=== PATIENT | female | born 1975 | race Caucasian/White ===

== ENCOUNTER → 2016-10-11 | Outpatient (REF) ==
[~2016-10-11] MED LIST: PERC5TAB6 PO; ROBA500T PO
--- NOTE | 2016-10-11 12:41 | REP ---
Clinical: Chest pain . Technique: PA and lateral. Findings: The mediastinum and cardiac silhouette are normal. The lung bird are clear and without acute consolidation, effusion, or pneumothorax. The skeletal structures are intact and normal. Impression: 1. No acute cardiopulmonary process. Signed by Jose Alejandro Cox MD 10/11/2016 12:33 P
--- NOTE | 2016-10-11 12:43 | REP ---
LUMBAR SPINE, FIVE VIEWS: HISTORY: Degenerative disc disease. COMPARISON: 01/02/2016. There is no acute fracture or subluxation. The L3-4 intervertebral disc is decreased in height consistent with disc degeneration. Osteophytes are present on L2-4. The facet joints are normal in appearance. IMPRESSION: Degenerative change as described above. Signed by Chad Montes De Oca MD 10/11/2016 12:46 P
--- NOTE | 2016-10-11 12:46 | REP ---
CERVICAL SPINE, SEVEN VIEWS: HISTORY: Degenerative disc disease. COMPARISON: 04/24/2016. The patient is status post C5-6 anterior spinal fusion. A fixation plate and bone graft material are present. There is no acute fracture or subluxation. The C4-5 intervertebral disc is decreased in height consistent with disc degeneration. Osteophytes are present on C4 and 7. There is narrowing of the right C4 neural foramen secondary to uncinate process hypertrophy. The left neural foramina are not well seen. IMPRESSION: 1. The patient is status post C5-6 anterior spinal fusion. There is anatomic alignment. 2. There is cervical spondylosis at the C4-5 and C6-7 levels. Signed by Chad Montes De Oca MD 10/11/2016 12:46 P
--- NOTE | 2016-10-11 13:00 | REP ---
Clinical: Pain. Technique: Shirley Valenzuela, lateral views. Findings: Sinuses are well aerated and clear. No mucosal thickening or fluid levels are identified. Osseous structures and surrounding soft tissues are normal. Impression: Normal sinus radiograph series. Signed by Jose Alejandro Cox MD 10/11/2016 12:52 P
== END | disposition home or self-care (01) ==
LOC: M SMT 11:10
PROVIDERS: ATTEND Internal Medicine
DX: Z02.71 Encounter for disability determination (principal)

== ENCOUNTER → 2016-11-28 | Outpatient (CLI) | payer OTHER ==
--- NOTE | 2016-11-28 10:08 | REP ---
Thyroid ultrasound: Comparison is 06/15/2016. Right lobe: The right lobe is enlarged measuring 5.7 x 1.5 x 2.1 cm (previously 5.2 x 1.6 x 2.1 cm). There are three right lobe thyroid nodules as previously. The largest maximally measures 1.3 cm (previously 1.2 cm). The next largest maximally measures 1.1 centimeters (previously 1.2 cm). The smallest maximally measures 1.0 cm (previously 0.5 cm). The left lobe is enlarged measuring 5.7 x 2.0 x 1.7 cm (previously four point November 24 0.8 x 1.5 cm). There are four left lobe nodules this is three nodules previously). The largest nodule is posteriorly in the left lobe today maximally measuring 2.4 cm (previously 2.4 cm). The next largest today measures 1.4 cm (previously 1.3 cm. The next largest measures 1.4 cm (previously 1.4 cm). The fourth nodule, not present previously, measures 1.4 cm. The isthmus is not thickened measuring 2 mm since 1.8 mm previously). There are no nodules in the isthmus. Impression: Bilateral thyroid nodules. Enlarged right and left thyroid lobes. Signed by Donald Diaz MD 11/28/2016 10:00 A
== END ==
LOC: M RAD 08:57
PROVIDERS: ATTEND Otolaryngology
DX: E04.2 Nontoxic multinodular goiter (principal)

== ENCOUNTER → 2017-03-04 | Outpatient (CLI) | payer OTHER ==
[~2017-03-04] MED LIST changes: +PERC5TAB12 PO; -PERC5TAB6 PO
--- NOTE | 2017-03-05 00:27 | REP ---
Clinical: Multinodular goiter. Technique: Real time barnett scale and color evaluation using linear high frequency transducer. Comparison: 11/28/2016. Findings: Enlarged heterogeneous multinodular goiter is essentially unchanged compared to prior examination. Right lobe measures approximately 5.0 x 1.3 x 1.7 cm with multiple nodules. Specifically anterior mid pole nodule measuring 13 x 10 x 9 mm is unchanged and posterior lower pole nodule measuring 12 x 11 x 13 mm may be slightly increased (previously measuring 11 x 11 x 9 mm). Left lobe measures approximately 5.5 x 2.0 x 2.1 cm with multiple nodules. Specifically the anterior mid pole nodule measures 14 x 10 x 11 mm (previously measuring 14 x 9 x 12 mm) and lower pole nodule measuring 25 x 17 x 17 mm is essentially stable (previously measuring 24 x 15 x 16 mm). Anterior mid pole cyst with nodular component measures 9 x 5 x 9 mm and is unchanged. Impression: Multinodular goiter essentially unchanged from prior examination. Most prominent nodules as described above. Signed by Jose Alejandro Cox MD 03/05/2017 12:18 A
== END ==
LOC: M RAD 15:36
PROVIDERS: ATTEND Family Medicine
DX: E04.9 Nontoxic goiter, unspecified (principal)

== ENCOUNTER → 2017-04-04 | Outpatient (CLI) | payer OTHER ==
--- NOTE | 2017-04-04 12:19 | REP ---
MRI LUMBAR SPINE WITHOUT CONTRAST: HISTORY: Back pain. There is no disc bulge or herniation at the L1-2 and L5-S1 levels. The nerves exit the neural foramina without compression. A diffuse disc bulge is present at the L2-3 level. There is minimal compression of the thecal sac. The L2 nerves exit the neural foramina without compression. A diffuse disc bulge is present at the L3-4 level. There is minimal compression of the thecal sac. The L3 nerves exit the neural foramina without compression. A diffuse disc bulge is present at the L4-5 level. There is minimal compression of the thecal sac. There is hypertrophy of the posterior articulating facets. The L4 nerves exit the neural foramina without compression. The conus medullaris is normal in appearance terminating at the level of the L1-2 intervertebral disc. Normal signal intensity is present in the lumbar intervertebral discs and vertebral bodies. IMPRESSION: Diffuse disc bulges at the L2-3 through L4-5 levels with minimal thecal sac compression. Signed by Chad Montes De Oca MD 04/04/2017 12:58 P
== END ==
LOC: M RAD 10:58
PROVIDERS: ATTEND Pain Medicine Interventional Pain Medicine
DX: M25.512 Pain in left shoulder (principal); M47.817 Spondylosis without myelopathy or radiculopathy, lumbosacral region; M51.36 Other intervertebral disc degeneration, lumbar region; M54.81 Occipital neuralgia; M54.12 Radiculopathy, cervical region; M50.220 Other cervical disc displacement, mid-cervical region, unspecified level; M50.320 Other cervical disc degeneration, mid-cervical region, unspecified level; M96.1 Postlaminectomy syndrome, not elsewhere classified; M51.06 Intervertebral disc disorders with myelopathy, lumbar region

== ENCOUNTER → 2017-09-10 | Outpatient (CLI) | payer OTHER | LOC: M RAD 09:30 | DX: Z12.31 Encounter for screening mammogram for malignant neoplasm of breast (principal) ==

== ENCOUNTER → 2017-10-02 | Outpatient (CLI) | payer OTHER | LOC: M LAB 10:27 | DX: E04.2 Nontoxic multinodular goiter (principal) ==

== ENCOUNTER → 2018-06-11 | Outpatient (CLI) | payer OTHER | LOC: M RAD 15:52 | DX: J98.4 Other disorders of lung (principal) | CPT/HCPCS: 71250 ==

== ENCOUNTER → 2018-09-16 | Outpatient (CLI) | payer OTHER ==
--- NOTE | 2018-09-17 08:03 | REP ---
Clinical: Nontoxic multinodular goiter. Technique: Real time barnett scale and color evaluation using linear high frequency transducer. Comparison: 03/04/2017. Findings: The thyroid gland is enlarged and demonstrates multiple scattered nodules and cystic lesions. The isthmus measures 4 mm in width. Right lobe measures 5.0 x 1.6 x 2.5 cm including complex upper pole nodule measuring 14 x 9 x 10 mm and mid to lower pole nodules measuring 9 x 7 x 7 mm and 9 x 9 x 10 mm as well as small nonspecific subcentimeter cysts. Left lobe measures 5.6 x 2.0 x 1.7 cm and includes complex upper pole nodule measuring 13 x 8 x 10 mm along with mid pole nodules measuring 11 x 10 x 10 mm, 15 x 5 x 8 mm, and lower pole nodule measuring 24 x 13 x 17 mm along with small nonspecific subcentimeter cysts. Impression: Nontoxic multinodular goiter as described above. The 9 x 7 x 7 mm mid pole nodule in the right lobe represents a new finding while the remainder of the bilateral nodules are essentially stable when allowing for subtle variations in technique. Electronically Signed by Jose Alejandro Cox MD 09/17/2018 07:54 A
== END ==
LOC: M RAD 12:39
PROVIDERS: ATTEND Physician Assistant Medical
DX: E04.2 Nontoxic multinodular goiter (principal)

== ENCOUNTER → 2018-10-02 | Outpatient (CLI) | payer OTHER | LOC: M LAB 10:21 | PROVIDERS: ATTEND Physician Assistant Medical | DX: E04.2 Nontoxic multinodular goiter (principal) ==

== ENCOUNTER → 2019-09-17 | Outpatient (CLI) | payer OTHER ==
--- NOTE | 2019-09-18 03:36 | REP ---
Clinical: Multinodular goiter. Comparison: 09/16/2018. Technique: Real time barnett scale ultrasound examination using high frequency transducer. Findings: Right lobe measures 5.5 x 1.5 x 1.9 cm and includes solid upper pole nodule measuring 1.5 x 1.0 x 1.3 cm, primarily solid mid pole nodule measuring 1.1 x 1.0 x 1.2 cm, solid mid pole nodule measuring 0.8 x 0.5 x 0.7 cm, and smaller scattered nodules. Left lobe measures 6.8 x 1.7 x 1.3 cm and includes solid upper pole nodule measuring 1.3 x 1.0 x 1.2 cm, solid lower pole nodule measuring 2.1 x 1.6 x 1.8 cm, solid mid pole nodule measuring 1.4 x 1.1 x 1.2 cm, and smaller scattered nodules. Isthmus measures 3.2 mm in width. Impression: Multinodular goiter. Allowing for differences in technique, scattered nodules are similar to prior examination and essentially unchanged. Electronically Signed by Jose Alejandro Cox MD 09/18/2019 03:27 A
== END ==
LOC: M RAD 10:58
PROVIDERS: ATTEND Physician Assistant Medical
DX: E04.2 Nontoxic multinodular goiter (principal)

== ENCOUNTER → 2019-09-24 | Outpatient (CLI) | payer OTHER | LOC: M LAB 08:22 | PROVIDERS: ATTEND Physician Assistant Medical | DX: E04.1 Nontoxic single thyroid nodule (principal) ==

== ENCOUNTER 2019-11-19 08:01 | Emergency (ER) | payer OTHER ==
[~2019-11-19] VITALS: Ht 165.1 cm; Wt 66.5 kg
[2019-11-19] MEDS ORDERED: VENL100T PO (08:18)
[2019-11-19] MEDS ORDERED: TOPA50TA8 PO (08:18)
[2019-11-19] MEDS ORDERED: TIZA2CAP6 PO (08:18)
[2019-11-19] MEDS ORDERED: SAPH1SUB9 SL (08:18)
[2019-11-19] MEDS ORDERED: ONDANSETRON 4MG/2ML VIAL (J2405) IV ONE (08:30)
[2019-11-19] MEDS ORDERED: MORPHINE 4 MG/ML 1ML VIAL/SYRINGE (J2270) IV PRN (08:30)
--- NOTE | 2019-11-19 08:52 | REP ---
Head CT without contrast: History: Trauma. Comparison study: No comparison study. CT findings: Bone window settings demonstrate an intact bony calvarium. There is no evidence of skull fracture or incidental bony calvarial lesion. The visualized paranasal sinuses appear clear. No intraorbital abnormality is seen. On soft tissue window setting images; the lateral, third, and fourth ventricles are normal in size and position. Westbrook-white differentiation pattern is normal above and below the tentorium. There are is no evidence of intracranial hemorrhage. No mass, edema, infarction, or midline shift is seen. No extra-axial fluid collection is appreciated. Impression: Negative noncontrast head CT. Electronically Signed by Jv Rivas MD 11/19/2019 08:51 A
--- NOTE | 2019-11-19 09:03 | REP ---
CT study of the cervical spine without contrast: History: Trauma Technique: Helical scanning is acquired and overlapping 2 mm high resolution axial images were generated and reviewed at bone and soft tissue window settings. Coronal and sagittal multiplanar re-formations images are generated. CT findings: There is no evidence of cervical spine element fracture. No skull base fracture is seen. Cervical vertebral body heights are preserved. Alignment is normal. Facet joints are normally aligned bilaterally at each cervical level on multiplanar re-formations images. There is no evidence of intraspinal or paraspinal hematoma. No extra vertebral abnormality is seen. The patient is status post anterior discectomy and fusion plating across the C 05/06 disc level. Degenerative disc spurring is noted at C6-7 and C4-5. C4-5 there is some posterior osteophytic ridging. Multinodular thyroid changes are noted incidentally on the right. Impression: Multinodular thyroid, left larger than right. Otherwise negative CT study of the cervical spine without contrast. No fracture seen. Electronically Signed by Jv Rivas MD 11/19/2019 08:54 A
--- NOTE | 2019-11-19 09:35 | REP ---
RIGHT KNEE, FIVE VIEWS: There is no evidence of an acute fracture, dislocation or intrinsic bone disease. IMPRESSION: No fracture or dislocation. Electronically Signed by Donald Westbrook MD 11/19/2019 04:49 P
--- NOTE | 2019-11-19 09:36 | REP ---
RIGHT ANKLE, FOUR VIEWS: Four views of the right ankle performed. There is mild lateral soft tissue swelling. There is no acute fracture or dislocation. The ankle mortise is anatomic. Oval calcification distal to the lateral malleolus probably representing an old avulsion fracture. IMPRESSION: No acute fracture or dislocation. Electronically Signed by Donald Westbrook MD 11/19/2019 04:49 P
[2019-11-19] MEDS ORDERED: ADACEL/BOOSTRIX VACCINE (DIPHTH/PERTUSS/ACELL/TETANUS)0.5ML SYR (90715) IM ONE (09:45)
[2019-11-19 10:00] VITALS: BP 113/59
--- NOTE | 2019-11-19 10:12 | REP ---
Right foot: Four views. History: Trauma. Findings: Four views right foot show Achilles calcaneal spurring. Bones, joints and soft tissues are otherwise unremarkable. No fracture or subluxation is seen. Impression: No fracture noted. Electronically Signed by Jv Rivas MD 11/19/2019 10:03 A
--- NOTE | 2019-11-19 15:49 | ED PDOC ---
Post-Departure Follow-Up ft ayala samuels faxed formal report of ct c spine for fu Fadia Wilkinson MD Nov 19, 2019 15:48
== END 2019-11-19 10:25 | disposition home or self-care (01) ==
LOC: M ED 08:01 → EDBD 08:01 → M ED 10:25
DX: S90.31XA Contusion of right foot, initial encounter (principal); S90.01XA Contusion of right ankle, initial encounter; V47.5XXA Car driver injured in collision with fixed or stationary object in traffic accident, initial encounter; Y92.410 Unspecified street and highway as the place of occurrence of the external cause; Z79.899 Other long term (current) drug therapy; Z88.1 Allergy status to other antibiotic agents; Z88.0 Allergy status to penicillin; Z88.8 Allergy status to other drugs, medicaments and biological substances; Z23 Encounter for immunization
CPT/HCPCS: 70450; 72125; 73564; 73610; 73630; 90471; 90715; 96374; 96375; 99284; J2270; J2405

== ENCOUNTER → 2020-09-26 | Outpatient (CLI) | payer OTHER ==
[~2020-09-26] MED LIST changes: +SAPH1SUB9 SL; +TIZA2CAP6 PO; +TOPA50TA8 PO; +VENL100T PO
--- NOTE | 2020-09-27 08:24 | REP ---
INDICATION: NON TOXIC GOITER COMPARISON: 09/17/2019 TECHNIQUE: Westbrook scale and color evaluation of the thyroid gland using the linear high frequency transducer. FINDINGS: Thyroid gland is mildly enlarged and heterogeneous with multiple nodules identified. Right thyroid lobe measures 4.9 x 1.5 x 1.6 cm and includes 1.5 x 0.9 x 1.0 cm solid upper pole nodule, 1.5 x 0.6 x 0.8 cm solid midpole nodule, and 1.2 x 0.9 x 1.1 cm solid mid/lower pole nodule. Isthmus measures 3.3 mm in width. Left thyroid lobe measures 5.5 x 1.8 x 1.5 cm and includes 1.9 x 0.7 x 1.6 cm solid upper pole nodule, 1.2 x 0.9 x 1.1 cm solid upper pole nodule, and 2.0 x 1.5 x 1.6 cm solid lower pole nodule. IMPRESSION: Allowing for differences in technique, the above-mentioned nodules are similar to prior examination and without significant change. <Electronically signed by Jose Alejandro Cox > 09/27/20 [id number]
== END ==
LOC: M RAD 16:10
PROVIDERS: ATTEND Physician Assistant Medical
DX: E04.2 Nontoxic multinodular goiter (principal)

== ENCOUNTER → 2020-09-30 | Outpatient (CLI) | payer OTHER | LOC: M LAB 13:27 | PROVIDERS: ATTEND Physician Assistant Medical | DX: E04.2 Nontoxic multinodular goiter (principal) ==

== ENCOUNTER → 2020-10-27 | Outpatient (CLI) | payer OTHER ==
--- NOTE | 2020-10-27 11:12 | REPMRS ---
Patient History The patient states she has not had a clinical breast exam in over a year. Family history of breast cancer at age 34 in maternal cousin. Benign stereotactic TERESE of the right breast, 2012. No Hormone Replacement Therapy 3D TOMOSYNTHESIS WAS PERFORMED. [facility]%. Volpara breast density c. Digital Woman Screen Mammo: October 27, 2020 - Exam #: [id number] Bilateral CC and MLO view(s) were taken. Technologist: Dee Garcia, Technologist Prior study comparison: September 10, 2017, bilateral digital mammo screening bilat, performed at [facility]. November 13, 2012, digital bilateral screening mammo. FINDINGS: The breast tissue is heterogeneously dense. This may lower the sensitivity of mammography. There has been no change in the appearance of the mammogram from the prior studies. There is a moderate amount of residual fibroglandular tissue which is fairly symmetric. There is no interval development of dominant mass, areas of architectural distortion, or clustered microcalcification typical of malignancy. Assessment: BI-RADS/ACR category 1 mammogram. Negative Mammogram. Recommendation Routine screening mammogram in 1 year (for women over age 40). This mammogram was interpreted with the aid of an FDA-approved computer-aided dectection system. Electronically Signed By: Donald Westbrook MD 10/27/20 1111
== END ==
LOC: M WHC 09:23
PROVIDERS: ATTEND Nurse Practitioner Family
DX: Z12.31 Encounter for screening mammogram for malignant neoplasm of breast (principal)

== ENCOUNTER → 2021-10-09 | Outpatient (CLI) | payer OTHER | LOC: M RAD 10:11 | PROVIDERS: ATTEND Physician Assistant Medical | DX: E04.2 Nontoxic multinodular goiter (principal) ==

== ENCOUNTER 2021-10-11 09:41 | Emergency (ER) | payer OTHER ==
[~2021-10-11] VITALS: Ht 165.1 cm; Wt 67.9 kg
[2021-10-11] MEDS ORDERED: NS 1,000 ML IV SCH (10:25)
[2021-10-11 11:02] LABS: BASO % 0.2 % (0.0-1.0); HEMATOCRIT 43.7 % (36.0-47.0); HEMOGLOBIN 14.5 g/dl (12.0-15.5); LYMPH # 1.5 10^3/uL (1.5-5.0); MEAN CORPUSCULAR HEMOGLOBIN 29.1 pg (27.0-33.0); MEAN CORPUSCULAR HGB CONC 33.2 g/dl (32.0-36.5); MEAN CORPUSCULAR VOLUME 87.6 fl (80.0-96.0); MONO # 0.3 10^3/uL (0.0-0.8); MONO % 7.4 % (2.0-8.0); NEUTROPHILS # 2.2 10^3/uL (1.5-8.5); NEUTROPHILS % 54.7 % (36.0-66.0); PLATELET COUNT, AUTOMATED 222 10^3/uL (150-450); RED BLOOD COUNT 4.99 10^6/uL (4.00-5.40)
[2021-10-11] MEDS ORDERED: KETOROLAC 30 MG/ML 1ML VIAL IV ONE (11:25)
[2021-10-11] MEDS ORDERED: ONDANSETRON 4MG/2ML VIAL IV ONE (11:25)
[2021-10-11] MEDS ORDERED: dexameTHASONE 20MG/5ML VIAL (J1100 PER 1MG) IV ONE (11:25)
[2021-10-11 11:30] LABS: BLOOD UREA NITROGEN 7 MG/DL (7-18); CALCIUM LEVEL 8.9 MG/DL (8.5-10.1); CARBON DIOXIDE LEVEL 24 MEQ/L (21-32); CHLORIDE LEVEL 110 MEQ/L (98-107); CREATININE FOR GFR 0.86 MG/DL (0.55-1.30); GLOMERULAR FILTRATION RATE > 60.0 (>58); GLUCOSE, FASTING 90 MG/DL (70-100); POTASSIUM SERUM 4.4 MEQ/L (3.5-5.1); SODIUM LEVEL 140 MEQ/L (136-145)
[2021-10-11 13:12] VITALS: BP 109/58
== END 2021-10-11 13:14 | disposition home or self-care (01) ==
LOC: M ED 09:41
DX: U07.1 COVID-19 (principal); J45.909 Unspecified asthma, uncomplicated; G95.9 Disease of spinal cord, unspecified; M54.10 Radiculopathy, site unspecified; Z88.1 Allergy status to other antibiotic agents; Z88.0 Allergy status to penicillin; Z88.8 Allergy status to other drugs, medicaments and biological substances; Z79.899 Other long term (current) drug therapy
CPT/HCPCS: 80048; 85025; 87804; 93005; 96361; 96374; 96375; 99284; J1100; J1885; J2405

== ENCOUNTER → 2021-10-16 | Outpatient (CLI) | payer OTHER ==
[2021-10-16 12:19] LABS: FREE T4 0.87 NG/DL (0.76-1.46); THYROID STIMULATING HORMONE 1.68 uIU/ML (0.358-3.740)
== END ==
LOC: M LAB 10:29
PROVIDERS: ATTEND Physician Assistant Medical
DX: E04.2 Nontoxic multinodular goiter (principal)

== ENCOUNTER → 2021-10-27 | Outpatient (CLI) | payer OTHER ==
[~2021-10-27] MED LIST changes: +CYAN500T14 PO; +LIDOCAINE 1% MDV 20ML VIAL As Ordered ONE; +MAGN1CAP PO; +SING10TA32 PO; +ZYRTTAB8 PO
[2021-10-27 13:45] VITALS: BP 112/76
== END ==
LOC: M IRPRO 12:16
PROVIDERS: ATTEND Physician Assistant Medical
DX: E04.2 Nontoxic multinodular goiter (principal)

== ENCOUNTER → 2021-11-15 | Outpatient (CLI) | payer OTHER ==
[~2021-11-15] MED LIST changes: +E-Z-GAS II EFFERVESCENT PACKET (SODIUM BICARB./CITRIC ACID/SIMETHICONE) As Ordered ONE; +E-Z-HD 98% w/w 340GM SUSP BTL As Ordered ONE; +E-Z-PAQUE 96% w/w SUSP 176GM BTL As Ordered ONE; +ISOVUE-370 76% 100ML VIAL As Ordered ONE; -LIDOCAINE 1% MDV 20ML VIAL As Ordered ONE
== END ==
LOC: M RAD 08:29
PROVIDERS: ATTEND Otolaryngology
DX: R13.10 Dysphagia, unspecified (principal)

== ENCOUNTER → 2021-11-20 | Outpatient (CLI) | payer OTHER ==
[~2021-11-20] MED LIST changes: -E-Z-GAS II EFFERVESCENT PACKET (SODIUM BICARB./CITRIC ACID/SIMETHICONE) As Ordered ONE; -E-Z-HD 98% w/w 340GM SUSP BTL As Ordered ONE; -E-Z-PAQUE 96% w/w SUSP 176GM BTL As Ordered ONE; -ISOVUE-370 76% 100ML VIAL As Ordered ONE; +LIDOCAINE 1% MDV 20ML VIAL As Ordered ONE; +WELL100T2 PO
[2021-11-20 09:27] VITALS: BP 100/67
== END ==
LOC: M IRPRO 09:11
PROVIDERS: ATTEND Otolaryngology
DX: E04.2 Nontoxic multinodular goiter (principal)

== ENCOUNTER 2021-12-01 09:40 | Emergency (ER) | payer OTHER ==
[~2021-12-01] VITALS: Ht 165.1 cm; Wt 65.9 kg
[~2021-12-01 09:40] MED LIST changes: -LIDOCAINE 1% MDV 20ML VIAL As Ordered ONE
[2021-12-01] MEDS ORDERED: NS 1,000 ML IV ONE (10:20)
[2021-12-01 10:50] LABS: BASO % 0.1 % (0.0-1.0); HEMATOCRIT 38.9 % (36.0-47.0); HEMOGLOBIN 13.1 g/dl (12.0-15.5); LYMPH # 1.3 10^3/uL (1.5-5.0); LYMPH % 13.5 % (24.0-44.0); MEAN CORPUSCULAR HEMOGLOBIN 30.7 pg (27.0-33.0); MEAN CORPUSCULAR HGB CONC 33.7 g/dl (32.0-36.5); MEAN CORPUSCULAR VOLUME 91.1 fl (80.0-96.0); MONO # 0.6 10^3/uL (0.0-0.8); MONO % 5.9 % (2.0-8.0); NEUTROPHILS # 7.4 10^3/uL (1.5-8.5); NEUTROPHILS % 79.9 % (36.0-66.0); PLATELET COUNT, AUTOMATED 223 10^3/uL (150-450); RED BLOOD COUNT 4.27 10^6/uL (4.00-5.40); WHITE BLOOD COUNT 9.3 10^3/uL (4.0-10.0)
[2021-12-01 12:18] LABS: BLOOD UREA NITROGEN 10 MG/DL (7-18); CALCIUM LEVEL 8.4 MG/DL (8.5-10.1); CARBON DIOXIDE LEVEL 25 MEQ/L (21-32); CHLORIDE LEVEL 111 MEQ/L (98-107); CREATININE FOR GFR 0.84 MG/DL (0.55-1.30); FREE T4 0.95 NG/DL (0.76-1.46); GLOMERULAR FILTRATION RATE > 60.0 (>58); GLUCOSE, FASTING 80 MG/DL (70-100); MAGNESIUM LEVEL 2.2 MG/DL (1.8-2.4); POTASSIUM SERUM 4.5 MEQ/L (3.5-5.1); SODIUM LEVEL 140 MEQ/L (136-145)
[2021-12-01 14:30] VITALS: BP 102/64
== END 2021-12-01 15:07 | disposition home or self-care (01) ==
LOC: M ED 09:40
DX: R55 Syncope and collapse (principal); J45.909 Unspecified asthma, uncomplicated; Z12.31 Encounter for screening mammogram for malignant neoplasm of breast; Z85.850 Personal history of malignant neoplasm of thyroid; Z79.899 Other long term (current) drug therapy; Z88.0 Allergy status to penicillin; Z88.1 Allergy status to other antibiotic agents; Z88.8 Allergy status to other drugs, medicaments and biological substances

== ENCOUNTER → 2021-12-13 | Outpatient (CLI) | payer OTHER | LOC: M WHC 12:38 | PROVIDERS: ATTEND Nurse Practitioner Family | DX: Z12.31 Encounter for screening mammogram for malignant neoplasm of breast (principal) | CPT/HCPCS: 77065; G0279 ==

== ENCOUNTER → 2022-04-17 | Outpatient (CLI) | payer BC, OTHER | LOC: M RAD 15:50 | PROVIDERS: ATTEND Nurse Practitioner Family | DX: R22.1 Localized swelling, mass and lump, neck (principal); Z90.89 Acquired absence of other organs ==

== ENCOUNTER → 2022-05-17 | Outpatient (CLI) | payer BC | LOC: M WHC 14:56 | PROVIDERS: ATTEND Nurse Practitioner Family | DX: N92.0 Excessive and frequent menstruation with regular cycle (principal) ==

== ENCOUNTER → 2022-08-07 | Outpatient (CLI) | payer BC | LOC: M PLAIMG 11:06 | PROVIDERS: ATTEND Nurse Practitioner Family | DX: M54.2 Cervicalgia (principal) ==

== ENCOUNTER 2022-11-02 22:40 | Emergency (ER) | payer BC, OTHER ==
[~2022-11-02] VITALS: Ht 165.1 cm; Wt 83.6 kg
[~2022-11-02 22:40] MED LIST changes: +MONT-5 PO; -SING10TA32 PO
[2022-11-02] MEDS ORDERED: RIZA5TAB2 PO (23:00)
[2022-11-02] MEDS ORDERED: SYNT125T PO (23:00)
[2022-11-03] MEDS ORDERED: BACT800T5 PO (00:53)
[2022-11-03] MEDS ORDERED: BACTRIM 160MG/800MG DS TAB PO ONE (00:55)
[2022-11-03 01:03] VITALS: BP 111/77
== END 2022-11-03 01:08 | disposition home or self-care (01) ==
LOC: M ED 22:40
DX: L03.031 Cellulitis of right toe (principal)

== ENCOUNTER → 2022-12-25 | Outpatient (CLI) | payer OTHER ==
[~2022-12-25] MED LIST changes: +BACT800T5 PO; +RIZA5TAB2 PO; +SYNT125T PO
== END ==
LOC: M WHC 07:32
PROVIDERS: ATTEND Nurse Practitioner Family
DX: Z12.31 Encounter for screening mammogram for malignant neoplasm of breast (principal)

== ENCOUNTER → 2023-01-29 | Outpatient (CLI) | payer OTHER | LOC: M WHC 09:14 | PROVIDERS: ATTEND Nurse Practitioner Family | DX: N64.4 Mastodynia (principal) | CPT/HCPCS: 77066; G0279 ==

== ENCOUNTER → 2023-03-20 | Outpatient (CLI) | payer BC | LOC: M PAIN 09:00 | PROVIDERS: ATTEND Anesthesiology | DX: M96.1 Postlaminectomy syndrome, not elsewhere classified (principal); M79.18 Myalgia, other site; M50.10 Cervical disc disorder with radiculopathy, unspecified cervical region; M47.812 Spondylosis without myelopathy or radiculopathy, cervical region; Z98.1 Arthrodesis status; E89.0 Postprocedural hypothyroidism; Z79.890 Hormone replacement therapy; Z88.0 Allergy status to penicillin; Z88.1 Allergy status to other antibiotic agents; Z88.8 Allergy status to other drugs, medicaments and biological substances ==

== ENCOUNTER → 2023-04-17 | Outpatient (CLI) | payer BC, OTHER ==
[2023-04-17 13:59] LABS: BASO % 0.2 % (0.0-1.0); HEMATOCRIT 41.6 % (36.0-47.0); HEMOGLOBIN 13.4 g/dl (12.0-15.5); LYMPH # 1.7 10^3/uL (1.5-5.0); LYMPH % 30.7 % (24.0-44.0); MEAN CORPUSCULAR HEMOGLOBIN 28.3 pg (27.0-33.0); MEAN CORPUSCULAR HGB CONC 32.2 g/dl (32.0-36.5); MEAN CORPUSCULAR VOLUME 87.8 fl (80.0-96.0); MONO # 0.4 10^3/uL (0.0-0.8); MONO % 7.8 % (2.0-8.0); NEUTROPHILS # 3.3 10^3/uL (1.5-8.5); NEUTROPHILS % 60.7 % (36.0-66.0); PLATELET COUNT, AUTOMATED 214 10^3/uL (150-450); RED BLOOD COUNT 4.74 10^6/uL (4.00-5.40); WHITE BLOOD COUNT 5.4 10^3/uL (4.0-10.0)
[2023-04-17 14:24] LABS: FREE T4 1.62 NG/DL (0.89-1.76)
[2023-04-17 14:25] LABS: ALBUMIN 3.5 G/DL (3.2-5.2); ALKALINE PHOSPHATASE 53 U/L (46-116); ALT/SGPT 11 U/L (7.0-40); AST/SGOT 17 U/L (<34); BILIRUBIN,TOTAL 0.4 MG/DL (0.3-1.2); BLOOD UREA NITROGEN < 5 MG/DL (9-23); CALCIUM LEVEL 9.1 MG/DL (8.5-10.1); CARBON DIOXIDE LEVEL 27 MMOL/L (20-31); CHLORIDE LEVEL 106 MMOL/L (98-107); CHOLESTEROL LEVEL 170 MG/DL (<200); CHOLESTEROL RISK RATIO 2.12 (<5); GLOMERULAR FILTRATION RATE > 60.0 (>58); GLUCOSE, FASTING 81 MG/DL (60-100); HDL CHOLESTEROL 80.1 MG/DL (>40); LDL CHOLESTEROL 77.1 MG/DL (<100); NON-HDL-C 89.9 MG/DL; POTASSIUM SERUM 4.9 MMOL/L (3.5-5.1); SODIUM LEVEL 140 MMOL/L (136-145); THYROID STIMULATING HORMONE 0.015 uIU/ML (0.55-4.78); TOTAL PROTEIN 6.6 G/DL (5.7-8.2); TRIGLYCERIDES LEVEL 64 MG/DL (<150)
== END ==
LOC: M PLALAB 10:37
PROVIDERS: ATTEND Registered Nurse
DX: Z00.00 Encounter for general adult medical examination without abnormal findings (principal)

== ENCOUNTER → 2023-05-06 | Outpatient (CLI) | payer BC ==
[~2023-05-06] MED LIST changes: +NORCO, ANEXSIA 5/325MG TABLET (HYDROcodone/ACETAMINOPHEN) As Ordered ONE; +TRIAMCINOLONE ACETONIDE SUSP 40MG/ML 1ML VIAL As Ordered ONE; +diazePAM 5MG TABLET As Ordered ONE
== END ==
LOC: M PAIN 10:30
PROVIDERS: ATTEND Anesthesiology
DX: M79.18 Myalgia, other site (principal); M47.812 Spondylosis without myelopathy or radiculopathy, cervical region; Z98.1 Arthrodesis status; Z88.0 Allergy status to penicillin; Z88.1 Allergy status to other antibiotic agents; Z88.8 Allergy status to other drugs, medicaments and biological substances
CPT/HCPCS: 20553; J0665; J3301

== ENCOUNTER 2023-05-12 12:20 | Inpatient (IN) | payer BC ==
[~2023-05-12] VITALS: Ht 165.1 cm; Wt 66.0 kg
[~2023-05-12 12:20] MED LIST changes: -NORCO, ANEXSIA 5/325MG TABLET (HYDROcodone/ACETAMINOPHEN) As Ordered ONE; -TRIAMCINOLONE ACETONIDE SUSP 40MG/ML 1ML VIAL As Ordered ONE; -diazePAM 5MG TABLET As Ordered ONE
[2023-05-12] MEDS ORDERED: SEMA2.4P SC (12:27)
[2023-05-12 13:15] LABS: HEMATOCRIT 45.6 % (36.0-47.0); MEAN CORPUSCULAR HEMOGLOBIN 28.8 pg (27.0-33.0); MEAN CORPUSCULAR HGB CONC 32.9 g/dl (32.0-36.5); MEAN CORPUSCULAR VOLUME 87.5 fl (80.0-96.0); PLATELET COUNT, AUTOMATED 283 10^3/uL (150-450); RED BLOOD COUNT 5.21 10^6/uL (4.00-5.40); WHITE BLOOD COUNT 9.3 10^3/uL (4.0-10.0)
[2023-05-12 13:46] LABS: ETHYL ALCOHOL (ETHANOL) 0.005 % (0.000-0.010)
[2023-05-12 13:47] LABS: SALICYLATE LEVEL < 3.0 MG/DL (<30)
[2023-05-12 13:48] LABS: ACETAMINOPHEN LEVEL < 2.0 UG/ML (10.0-20.0); ALBUMIN 4.1 G/DL (3.2-5.2); ALKALINE PHOSPHATASE 62 U/L (46-116); ALT/SGPT 14 U/L (7.0-40); AST/SGOT 15 U/L (<34); BILIRUBIN,DIRECT 0.2 MG/DL (<0.4); BILIRUBIN,TOTAL 0.6 MG/DL (0.3-1.2); BLOOD UREA NITROGEN 9 MG/DL (9-23); CALCIUM LEVEL 9.3 MG/DL (8.5-10.1); CARBON DIOXIDE LEVEL 29 MMOL/L (20-31); CHLORIDE LEVEL 102 MMOL/L (98-107); CREATININE FOR GFR 0.76 MG/DL (0.55-1.30); GLOMERULAR FILTRATION RATE > 60.0 (>58); GLUCOSE, FASTING 83 MG/DL (60-100); POTASSIUM SERUM 4.5 MMOL/L (3.5-5.1); SODIUM LEVEL 138 MMOL/L (136-145); TOTAL PROTEIN 7.6 G/DL (5.7-8.2)
[2023-05-12 14:08] LABS: AMPHETAMINES LEVEL URINE NEGATIVE (NEGATIVE)
[2023-05-12 14:09] LABS: BARBITURATES URINE NEGATIVE (NEGATIVE); BENZODIAZEPINES URINE NEGATIVE (NEGATIVE); CANNABINOIDS URINE NEGATIVE (NEGATIVE); COCAINE METABOLITE URINE NEGATIVE (NEGATIVE); METHADONE URINE NEGATIVE (NEGATIVE); OPIATES URINE NEGATIVE (NEGATIVE); PHENCYCLIDINE URINE NEGATIVE (NEGATIVE)
[2023-05-12] MEDS ORDERED: ONDANSETRON 4MG ORAL DISINTEGRATING TAB PO ONE (22:00)
[2023-05-13] MEDS ORDERED: LEVOTHYROXINE 125MCG TABLET (0.125MG) PO SCH (06:00)
[2023-05-13] MEDS ORDERED: B-2100TA PO ×2 (07:48→10:11)
[2023-05-13] MEDS ORDERED: VITA100093 PO (07:48)
[2023-05-13] MEDS ORDERED: CLIN1PAD2 TOP (07:48)
[2023-05-13] MEDS ORDERED: VENL150C43 PO ×2 (08:16→10:39)
[2023-05-13] MEDS ORDERED: MED REC IN PROGRESS XX SCH (08:45)
[2023-05-13] MEDS ORDERED: TOPIRAMATE (TopAMAX) 25 MG TAB PO SCH ×2 (09:00→13:42)
[2023-05-13] MEDS ORDERED: buPROPion 100 MG TAB PO SCH (09:00)
[2023-05-13] MEDS ORDERED: MONT-5 PO (10:02)
[2023-05-13] MEDS ORDERED: LEVO125C PO (10:03)
[2023-05-13] MEDS ORDERED: LEVO125T4 PO (10:04)
[2023-05-13] MEDS ORDERED: CETI5TAB2 PO (10:07)
[2023-05-13] MEDS ORDERED: VITA100T98 PO (10:11)
[2023-05-13] MEDS ORDERED: RIZA10TA2 PO (10:15)
[2023-05-13] MEDS ORDERED: TIZA2CAP6 PO (10:17)
[2023-05-13] MEDS ORDERED: TIZA2CAP PO (10:19)
[2023-05-13] MEDS ORDERED: ASEN5TA SL (10:21)
[2023-05-13] MEDS ORDERED: FLUT1BLS2 IH (10:27)
[2023-05-13] MEDS ORDERED: TOPI-254 PO ×2 (10:32→10:33)
[2023-05-13] MEDS ORDERED: ALBU8.5H INH (10:35)
[2023-05-13] MEDS ORDERED: LIDO5TD TOP (10:38)
[2023-05-13] MEDS ORDERED: LIDO5OIN19 EX (10:38)
[2023-05-13] MEDS ORDERED: METH-1164 PO (10:41)
[2023-05-13] MEDS ORDERED: MAGN400T2 PO (10:42)
[2023-05-13] MEDS ORDERED: HOME MED LIST COMPLETE! XX SCH (11:00)
[2023-05-13] MEDS ORDERED: IBUPROFEN 400MG TAB PO ONE (17:40)
[2023-05-13] MEDS ORDERED: traZODone 50 MG TAB PO PRN (20:50)
[2023-05-13] MEDS ORDERED: diphenhydrAMINE 25MG CAP PO PRN (20:50)
[2023-05-13] MEDS ORDERED: IBUPROFEN 400MG TAB PO PRN (20:50)
[2023-05-13] MEDS ORDERED: MAALOX 30 ML SUSP *UDC PO PRN (20:50)
[2023-05-13] MEDS ORDERED: ACETAMINOPHEN TAB 650MG DOSE (2X325MG) PO PRN (20:50)
[2023-05-13] MEDS ORDERED: MOM 30ML SUSPENSION UDC PO PRN (20:50)
[2023-05-13] MEDS ORDERED: TOPIRAMATE (TopAMAX) 100 MG TAB PO SCH (21:00)
[2023-05-13] MEDS ORDERED: VENLAFAXINE **XR** 75MG CAPSULE PO SCH (21:00)
[2023-05-13 22:36] VITALS: BP 97/63; TEMP 97.2; O2SAT 99
[2023-05-14 06:16] VITALS: BP 103/60; TEMP 98; O2SAT 99
[2023-05-14] MEDS: [UNRECOGNIZED DRUG - OTHER] TOP SCH (09:00)
[2023-05-14] MEDS ORDERED: TOPIRAMATE (TopAMAX) 25 MG TAB PO SCH (09:00)
[2023-05-14] MEDS ORDERED: LIDOCAINE 5% (LIDODERM) PATCH TOP SCH (09:00)
[2023-05-14 09:48] LABS: FREE T4 1.51 NG/DL (0.89-1.76)
[2023-05-14] MEDS ORDERED: RIZATRIPTAN BENZOATE 10 MG TAB PO PRN (09:55)
[2023-05-14] MEDS ORDERED: ALBUTEROL 90 MCG/ACT 8GM HFA INHALER INH PRN (09:55)
[2023-05-14] MEDS ORDERED: CETIRIZINE (ZyrTEC) 10 MG TAB PO PRN (09:55)
[2023-05-14] MEDS ORDERED: PILL CUTTER 1 EACH XX PRN (11:25)
[2023-05-14] MEDS: VITAMIN D 1,000 INTERNATIONAL UNITS TABLET PO SCH (12:52)
[2023-05-14] MEDS: MONTELUKAST 10 MG TAB PO SCH (12:52)
[2023-05-14] MEDS: LEVOTHYROXINE 125MCG TABLET (0.125MG) PO SCH (12:52)
[2023-05-14] MEDS: MAGNESIUM OXIDE 400MG TAB (MAG-OX) PO SCH ×2 (12:52→20:58)
[2023-05-14] MEDS: ADVAIR HFA 115/21MCG INHALER INH SCH ×2 (12:53→15:54)
[2023-05-14] MEDS: TOPIRAMATE (TopAMAX) 25 MG TAB PO SCH (12:53)
[2023-05-14] MEDS: MIRALAX *UNIT DOSE* 17GM PACKET PO SCH (12:58)
[2023-05-14] MEDS: CLINDAMYCIN TOP 1% SOLN 60ML BTL TOP SCH ×2 (14:00→21:00)
[2023-05-14 19:00] VITALS: BP 117/74; TEMP 97.5; O2SAT 97
[2023-05-14] MEDS: TOPIRAMATE (TopAMAX) 100 MG TAB PO SCH (20:58)
[2023-05-14] MEDS: VENLAFAXINE **XR** 37.5 MG CAPSULE PO SCH (20:58)
[2023-05-14] MEDS: VENLAFAXINE **XR** 75MG CAPSULE PO SCH (20:58)
[2023-05-14] MEDS: methocarbamoL 500 MG TAB PO SCH (20:58)
[2023-05-14] MEDS: LIDOCAINE 5% (LIDODERM) PATCH TOP SCH (21:00)
[2023-05-15] MEDS: LEVOTHYROXINE 125MCG TABLET (0.125MG) PO SCH (05:47)
[2023-05-15 05:52] VITALS: BP 101/66; TEMP 98.4; O2SAT 97
[2023-05-15] MEDS ORDERED: MIRALAX *UNIT DOSE* 17GM PACKET PO SCH (09:00)
[2023-05-15] MEDS: VITAMIN D 1,000 INTERNATIONAL UNITS TABLET PO SCH (09:32)
[2023-05-15] MEDS: MIRALAX *UNIT DOSE* 17GM PACKET PO SCH (09:32)
[2023-05-15] MEDS: TOPIRAMATE (TopAMAX) 25 MG TAB PO SCH (09:33)
[2023-05-15] MEDS: MAGNESIUM OXIDE 400MG TAB (MAG-OX) PO SCH ×2 (09:33→20:16)
[2023-05-15] MEDS: ADVAIR HFA 115/21MCG INHALER INH SCH ×2 (09:33→20:16)
[2023-05-15] MEDS: MONTELUKAST 10 MG TAB PO SCH (09:33)
[2023-05-15] MEDS: [UNRECOGNIZED DRUG - OTHER] TOP SCH (09:34)
[2023-05-15] MEDS: CLINDAMYCIN TOP 1% SOLN 60ML BTL TOP SCH ×2 (09:35→20:15)
[2023-05-15 16:18] VITALS: BP 111/76; TEMP 98
[2023-05-15] MEDS: methocarbamoL 500 MG TAB PO SCH (20:15)
[2023-05-15] MEDS: LIDOCAINE 5% (LIDODERM) PATCH TOP SCH (20:15)
[2023-05-15] MEDS: VENLAFAXINE **XR** 37.5 MG CAPSULE PO SCH (20:16)
[2023-05-15] MEDS: TOPIRAMATE (TopAMAX) 100 MG TAB PO SCH (20:16)
[2023-05-15] MEDS: VENLAFAXINE **XR** 75MG CAPSULE PO SCH (20:16)
[2023-05-16] MEDS: LEVOTHYROXINE 125MCG TABLET (0.125MG) PO SCH (05:59)
[2023-05-16 06:38] VITALS: BP 102/56; TEMP 99.4; O2SAT 99
[2023-05-16] MEDS: VITAMIN D 1,000 INTERNATIONAL UNITS TABLET PO SCH (08:59)
[2023-05-16] MEDS: MIRALAX *UNIT DOSE* 17GM PACKET PO SCH ×2 (08:59→09:00)
[2023-05-16] MEDS: MAGNESIUM OXIDE 400MG TAB (MAG-OX) PO SCH (08:59)
[2023-05-16] MEDS: MONTELUKAST 10 MG TAB PO SCH (08:59)
[2023-05-16] MEDS: TOPIRAMATE (TopAMAX) 25 MG TAB PO SCH (08:59)
[2023-05-16] MEDS: ADVAIR HFA 115/21MCG INHALER INH SCH (08:59)
[2023-05-16] MEDS: [UNRECOGNIZED DRUG - OTHER] TOP SCH (09:00)
[2023-05-16] MEDS: CLINDAMYCIN TOP 1% SOLN 60ML BTL TOP SCH (09:00)
[2023-05-16] MEDS ORDERED: VENL37.598 PO (10:46)
== END 2023-05-16 11:24 | disposition home or self-care (01) | DRG 751 ==
LOC: M ED 12:20 → M ED INP 05-13 20:46 → M PSY 05-13 22:26
PROVIDERS: ADMIT Student in an Organized Health Care Education/Training Program; ATTEND Student in an Organized Health Care Education/Training Program
DX: F33.9 Major depressive disorder, recurrent, unspecified (principal); F43.10 Post-traumatic stress disorder, unspecified; R45.851 Suicidal ideations; M47.812 Spondylosis without myelopathy or radiculopathy, cervical region; J45.909 Unspecified asthma, uncomplicated; G43.909 Migraine, unspecified, not intractable, without status migrainosus; E89.0 Postprocedural hypothyroidism; Z81.8 Family history of other mental and behavioral disorders; Z88.0 Allergy status to penicillin; Z88.8 Allergy status to other drugs, medicaments and biological substances; Z88.1 Allergy status to other antibiotic agents; Z79.890 Hormone replacement therapy; Z79.899 Other long term (current) drug therapy; Z98.1 Arthrodesis status; Z63.0 Problems in relationship with spouse or partner; Z91.51 Personal history of suicidal behavior; Z63.8 Other specified problems related to primary support group; Z85.850 Personal history of malignant neoplasm of thyroid

== ENCOUNTER → 2023-07-19 | Outpatient (CLI) | payer BC, OTHER ==
[~2023-07-19] MED LIST changes: +ALBU8.5H INH; +ASEN5TA SL; +B-2100TA PO; +CETI5TAB2 PO; +CLIN1PAD2 TOP; +FLUT1BLS2 IH; +LEVO125C PO; +LEVO125T4 PO; +LIDO5OIN19 EX; +LIDO5TD TOP; +MAGN400T2 PO; +METH-1164 PO; +RIZA10TA2 PO; +SEMA2.4P SC; +TIZA2CAP PO; +TOPI-254 PO; +VENL150C43 PO; +VENL37.598 PO; +VITA100093 PO; +VITA100T98 PO
[2023-07-19 11:50] LABS: FREE T4 1.57 NG/DL (0.89-1.76)
[2023-07-19 11:51] LABS: THYROID STIMULATING HORMONE 0.03 uIU/ML (0.55-4.78)
[2023-07-20 09:07] LABS: THRYOGLOBULIN ANTIBODIES (ATA) < 1.0 IU/mL (0.0-0.9); THYROGLOBULIN QUANTITATIVE < 0.1 ng/mL (1.5-38.5)
== END ==
LOC: M LAB 10:37
PROVIDERS: ATTEND Internal Medicine
DX: C73 Malignant neoplasm of thyroid gland (principal)

== ENCOUNTER → 2023-08-01 | Outpatient (CLI) | payer BC, OTHER ==
[~2023-08-01] MED LIST changes: +TOPI-21 PO; -TOPI-254 PO
== END ==
LOC: M RAD 13:14
PROVIDERS: ATTEND Internal Medicine
DX: C73 Malignant neoplasm of thyroid gland (principal)

== ENCOUNTER → 2024-06-26 | Outpatient (CLI) | payer BC, OTHER ==
[~2024-06-26] MED LIST changes: +TIZA2CAP3 PO; -TIZA2CAP6 PO
[2024-06-26 12:43] LABS: BASO % 0.3 % (0.0-1.0); HEMOGLOBIN 14.2 g/dl (12.0-15.5); LYMPH # 1.2 10^3/uL (1.5-5.0); MEAN CORPUSCULAR HEMOGLOBIN 30.4 pg (27.0-33.0); MEAN CORPUSCULAR VOLUME 92.1 fl (80.0-96.0); MONO # 0.3 10^3/uL (0.0-0.8); MONO % 6.4 % (2.0-8.0); NEUTROPHILS # 2.5 10^3/uL (1.5-8.5); PLATELET COUNT, AUTOMATED 216 10^3/uL (150-450); RED BLOOD COUNT 4.67 10^6/uL (4.00-5.40); WHITE BLOOD COUNT 3.9 10^3/uL (4.0-10.0)
[2024-06-26 13:10] LABS: ALBUMIN 3.7 G/DL (3.2-5.2); ALKALINE PHOSPHATASE 48 U/L (35-104); ALT/SGPT 15 U/L (7.0-40); AST/SGOT 13 U/L (<34); BILIRUBIN,TOTAL 0.5 MG/DL (0.3-1.2); BLOOD UREA NITROGEN 8 MG/DL (9-23); CALCIUM LEVEL 9.1 MG/DL (8.5-10.1); CARBON DIOXIDE LEVEL 28 MMOL/L (20-31); CHLORIDE LEVEL 106 MMOL/L (98-107); CHOLESTEROL LEVEL 182 MG/DL (<200); CHOLESTEROL RISK RATIO 2.08 (<5); CREATININE FOR GFR 0.86 MG/DL (0.55-1.30); GLOMERULAR FILTRATION RATE > 60.0 (>58); GLUCOSE, FASTING 75 MG/DL (60-100); HDL CHOLESTEROL 87.1 MG/DL (>40); LDL CHOLESTEROL 86.1 MG/DL (<100); NON-HDL-C 94.9 MG/DL; POTASSIUM SERUM 4.4 MMOL/L (3.5-5.1); SODIUM LEVEL 137 MMOL/L (136-145); TRIGLYCERIDES LEVEL 44 MG/DL (<150)
[2024-06-26 13:12] LABS: FREE T4 1.65 NG/DL (0.89-1.76); THYROID STIMULATING HORMONE 0.305 uIU/ML (0.55-4.78)
[2024-06-26 13:14] LABS: THYROID PEROXIDASE ANTIBODY 38 U/ML (<60.0)
[2024-06-26 13:15] LABS: FREE T3 2.8 PG/ML (2.3-4.2)
== END ==
LOC: M LAB 10:51
PROVIDERS: ATTEND Registered Nurse
DX: Z00.00 Encounter for general adult medical examination without abnormal findings (principal); E89.0 Postprocedural hypothyroidism

== ENCOUNTER → 2024-07-27 | Outpatient (CLI) | payer OTHER | LOC: M PLAIMG 11:24 | PROVIDERS: ATTEND Nurse Practitioner Family | DX: M79.641 Pain in right hand (principal) ==

== ENCOUNTER → 2025-01-11 | Outpatient (CLI) | payer BC, OTHER ==
[~2025-01-11] MED LIST changes: -LEVO125C PO; +LEVO125C2 PO
[2025-01-11 15:46] LABS: BASO % 0.3 % (0.0-1.0); HEMOGLOBIN 13.9 g/dl (12.0-15.5); LYMPH # 1.9 10^3/uL (1.5-5.0); LYMPH % 29.1 % (24.0-44.0); MEAN CORPUSCULAR HGB CONC 32.3 g/dl (32.0-36.5); MEAN CORPUSCULAR VOLUME 92.7 fl (80.0-96.0); MONO # 0.5 10^3/uL (0.0-0.8); MONO % 7.1 % (2.0-8.0); NEUTROPHILS # 4.1 10^3/uL (1.5-8.5); PLATELET COUNT, AUTOMATED 256 10^3/uL (150-450); RED BLOOD COUNT 4.64 10^6/uL (4.00-5.40); WHITE BLOOD COUNT 6.5 10^3/uL (4.0-10.0)
[2025-01-11 15:50] LABS: ALBUMIN 3.8 G/DL (3.2-5.2); ALKALINE PHOSPHATASE 51 U/L (35-104); ALT/SGPT 13 U/L (7.0-40); AST/SGOT 12 U/L (<34); BILIRUBIN,TOTAL 0.3 MG/DL (0.3-1.2); BLOOD UREA NITROGEN 8 MG/DL (9-23); CALCIUM LEVEL 9.3 MG/DL (8.5-10.1); CARBON DIOXIDE LEVEL 31 MMOL/L (20-31); CHLORIDE LEVEL 104 MMOL/L (98-107); CREATININE FOR GFR 0.75 MG/DL (0.55-1.30); GLOMERULAR FILTRATION RATE > 90.0 (>58); GLUCOSE, FASTING 79 MG/DL (60-100); POTASSIUM SERUM 4.8 MMOL/L (3.5-5.1); SODIUM LEVEL 141 MMOL/L (136-145); TOTAL PROTEIN 6.8 G/DL (5.7-8.2)
[2025-01-11 15:51] LABS: THYROID PEROXIDASE ANTIBODY < 28.0 U/ML (<60.0)
[2025-01-11 15:52] LABS: FREE T3 2.8 PG/ML (2.3-4.2); FREE T4 1.49 NG/DL (0.89-1.76); THYROID STIMULATING HORMONE 0.741 uIU/ML (0.55-4.78)
[2025-01-11 16:55] LABS: HEMOGLOBIN A1c 5.4 % (4.0-6.0)
== END ==
LOC: M PLALAB 13:03
PROVIDERS: ATTEND Registered Nurse
DX: E89.0 Postprocedural hypothyroidism (principal); R42 Dizziness and giddiness

== ENCOUNTER → 2025-04-28 | Outpatient (CLI) | payer OTHER | LOC: M SLEEP 20:00 | PROVIDERS: ATTEND Nurse Practitioner Family | DX: R06.83 Snoring (principal) ==

== ENCOUNTER 2025-07-13 07:42 | Emergency (ER) | payer BC, OTHER ==
[~2025-07-13] VITALS: Ht 165.1 cm; Wt 74.9 kg
[2025-07-13 07:43] VITALS: TEMP 97.5
[2025-07-13 09:27] LABS: SOFIA COVID ANTIGEN NEGATIVE (NEGATIVE)
[2025-07-13] MEDS ORDERED: TRET0.0540 (11:03)
[2025-07-13] MEDS ORDERED: DAPS60GE (11:03)
[2025-07-13 11:10] VITALS: BP 96/65; O2SAT 99
[2025-07-13] MEDS ORDERED: LEVO1TAB40 PO (11:16)
== END 2025-07-13 11:27 | disposition home or self-care (01) ==
LOC: M ED 07:42
DX: J01.90 Acute sinusitis, unspecified (principal); J45.909 Unspecified asthma, uncomplicated; I10 Essential (primary) hypertension; F41.9 Anxiety disorder, unspecified; F32.A Depression, unspecified; Z88.0 Allergy status to penicillin; Z88.1 Allergy status to other antibiotic agents; Z88.8 Allergy status to other drugs, medicaments and biological substances; Z79.51 Long term (current) use of inhaled steroids; Z79.4 Long term (current) use of insulin; Z79.899 Other long term (current) drug therapy

== ENCOUNTER → 2025-08-05 | Outpatient (CLI) | payer OTHER ==
[~2025-08-05] MED LIST changes: +DAPS60GE; +LEVO1TAB40 PO; +TRET0.0540
== END ==
LOC: M PLAIMG 08:00
PROVIDERS: ATTEND Physician Assistant Medical
DX: J32.0 Chronic maxillary sinusitis (principal); J34.89 Other specified disorders of nose and nasal sinuses